=== PATIENT | female | born 1940 | race Caucasian/White ===

== ENCOUNTER → 2020-10-21 10:03 | Outpatient (CLI) | payer MEDICARE, SELFPAY ==
--- NOTE | ~2020-10-21 | MM_ITS ---
EXAMINATION: MM screening [facility] BI w [place] HISTORY: Screening mammogram TECHNIQUE: Craniocaudal and mediolateral oblique 3-D tomosynthesis images were obtained and synthetic 2-D images were generated. CAD analysis was submitted and interpreted. COMPARISON: 06/03/2019, 05/06/2018, 01/09/2017 bilateral digital screening mammogram examinations BREAST PARENCHYMAL COMPOSITION: The breasts are heterogeneously dense, which may obscure small masses . FINDINGS: Stable mild fibroglandular asymmetry. Occasional benign calcifications. There is no evidenc e of suspicious mass, calcification, or architectural distortion to suggest malignancy in either [address]. There has been no suspicious interval change. IMPRESSION: 1. No mammographic evidence of malignancy. 2. Recommend routine screening mammography in one year. BI-RADS Category 2: Benign finding(s). Reviewed, dictated and finalized at location A.
== END ==
PROVIDERS: PCP Family Medicine; Visit Provider Physician Assistant
DX: Z12.31 Encounter for screening mammogram for malignant neoplasm of breast (principal)
CPT/HCPCS: 77063; 77067

== ENCOUNTER → 2022-04-26 13:06 | Outpatient (CLI) | payer MEDICARE, SELFPAY ==
--- NOTE | ~2022-04-26 | MM_ITS ---
EXAMINATION: MM screening [facility] BI w [place] HISTORY: Screening TECHNIQUE: Craniocaudal and mediolateral oblique 3-D tomosynthesis images were obtained and synthetic 2-D images were generated. CAD analysis was submitted and interpreted. COMPARISON: Comparison to multiple prior studies sequentially, with oldest reviewed study dated 09/2015. BREAST PARENCHYMAL COMPOSITION: There are scattered areas of fibroglandular density. FINDINGS: There is no evidence of suspicious mass, calcification, or architectural distortion to sugg est malignancy in either breast. There has been no suspicious interval change. IMPRESSION: 1. No mammographic evidence of malignancy. 2. Recommend routine screening mammography in one year. BI-RADS Category 1: Negative Reviewed, dictated and finalized at location A.
--- NOTE | ~2022-04-26 | DEXA_ITS ---
Bone Density Report Name: ANDRAE ENGLISH Age: 81 Sex: Female Ethnicity: White Date of : 1940 Indication: postmenopausal; screening for osteoporosis; height loss; hysterectomy; Referring Provider: STEPHANIE GRAFF Study: Bone densitometry was performed. Exam Date: April 26, 2022 Accession number: [id number] Bone Density: Region BMD T-score Z-score Classification AP Spine (L1-L4) 1.056 0.1 2.9 Normal Femoral Neck (Left) 0.679 -1.5 0.9 Osteopenia Total Hip (Left) 0.815 -1.0 1.2 Normal Femoral Neck (Right) 0.632 -2.0 0.5 Osteopenia Total Hip (Right) 0.831 -0.9 1.3 Normal Total Hip Mean 0.823 -1.0 1.3 Normal World Health Organization criteria for BMD impression classify patients as: Normal (T-score at or above -1.0), Osteopenia (T-score between -1.0 and -2.5), or Osteoporosis (T-score at or below -2.5). 10-year Fracture Risk(1): Major Osteoporotic Fracture 15% Hip Fracture 4.5% Reported Risk Factors: [place] (), Neck BMD=0.632, BMI=28.7 (1) FRAX(R) Version 3.08. Fracture probability calculated for an untreated patient. Fracture probability may be lower if the patient has received treatment. Previous Exams: Region Exam Age BMD T-score BMD Change BMD Change Date g/cm2 vs Baseline vs Previous AP Spine(L1-L4) 04/26/2022 81 1.056 0.1 -0.004 -0.003 04/20/2009 68 1.059 0.1 -0.001 -0.001 01/15/2007 66 1.060 0.1 Total Hip(Left) 04/26/2022 81 0.815 -1.0 -0.115* -0.123* 04/20/2009 68 0.938 0.0 0.008 0.008 01/15/2007 66 0.930 -0.1 Total Hip(Right) 04/26/2022 81 0.831 -0.9 -0.066* -0.085* 04/20/2009 68 0.916 -0.2 0.019 0.019 01/15/2007 66 0.897 -0.4 *Denotes significance at 95% confidence level, LSC for AP Spine = 0.022 g/cm2, LSC for Total Hip = 0.027 g/cm2 Clinical Information Provided by Patient: Has the following medical conditions: Hysterectomy Patient maximum height was 64.0 Menopause Age: 44 Drinks caffeinated beverages Onset of menses at age 12 Number of children 3 Impression: The patient has low bone mass, based on the Right Femoral Neck T-score. The patient has an estimated ten-year risk of hip fracture of 4.5% and an estimated ten-year risk of major fracture of 15%, based on the WHO FRAX algorithm. The BMD for the Total Hip(Left) decreased, changing by -0.123 since
== END ==
PROVIDERS: PCP Family Medicine; Visit Provider Family Medicine
DX: Z12.31 Encounter for screening mammogram for malignant neoplasm of breast (principal); Z78.0 Asymptomatic menopausal state; M85.89 Other specified disorders of bone density and structure, multiple sites
CPT/HCPCS: 77063; 77067; 77080

== ENCOUNTER 2023-02-12 09:00 | Outpatient (NON) | payer MEDICARE, SELFPAY | END 2023-02-12 09:01 | disposition home or self-care (01) | LOC: ANHLAB 02-13 12:03 | PROVIDERS: PCP Family Medicine; Visit Provider Nurse Practitioner | DX: D48.5 Neoplasm of uncertain behavior of skin (principal) | CPT/HCPCS: 88305; 88342 ==

== ENCOUNTER 2024-05-15 14:26 | Outpatient (CLI) | payer MEDICARE, SELFPAY ==
--- NOTE | ~2024-05-15 | MM_ITS ---
EXAMINATION: MM screening [facility] BI w [place] HISTORY: Screening mammogram TECHNIQUE: Craniocaudal and mediolateral oblique 3-D tomosynthesis images were obtained and synthetic 2-D images were generated. CAD analysis was submitted and interpreted. COMPARISON: 04/26/2022, and 21 bilateral screening mammogram examinations BREAST PARENCHYMAL COMPOSITION: The breasts are heterogeneously dense which may obscure small masses. FINDINGS: There is no evidence of suspicious mass, calcification, or architectural distortion to sugg est malignancy in either breast. There has been no suspicious interval change. IMPRESSION: 1. No mammographic evidence of malignancy. 2. Recommend routine screening mammography in one year. BI-RADS Category 1: Negative Reviewed, dictated and finalized at location A. [employer]
== END 2024-05-15 14:27 | disposition home or self-care (01) ==
LOC: MICIMG 14:27
PROVIDERS: PCP Family Medicine; Visit Provider Family Medicine
DX: Z12.31 Encounter for screening mammogram for malignant neoplasm of breast (principal)
CPT/HCPCS: 77063; 77067